=== PATIENT | female | born 1970 | race African-American/Black ===

== ENCOUNTER 2021-08-31 14:36 | Emergency (ER) | payer MEDICAID, OTHER ==
[~2021-08-31] VITALS: Ht 165.1 cm; Wt 75.0 kg
[~2021-08-31 14:36] MED LIST: METO50TA95
[2021-08-31] MEDS ORDERED: KETOROLAC 30MG/ML VIAL IM ONE (15:15)
[2021-08-31 15:33] VITALS: BP 144/99
[2021-08-31] MEDS ORDERED: KETOROLAC 30MG/ML VIAL IV STA (15:33)
[2021-08-31] MEDS ORDERED: DEXAMETHASONE 10 MG/ML VIAL IV ONE (15:45)
[2021-08-31] MEDS ORDERED: SODIUM CHLORIDE 0.9% 1,000 ML IV ONE (15:45)
[2021-08-31] MEDS ORDERED: CEFTRIAXONE 2 G PREMIX 50 ML IV ONE (15:45)
[2021-08-31 15:59] LABS: HEMATOCRIT. 32.4 % (36.0-48.0); HEMOGLOBIN. 10.7 g/dL (12.0-16.0); MEAN CORPUSCULAR HEMOGLOBIN 30.9 pg (28.0-32.0); MEAN CORPUSCULAR VOLUME 93.7 fL (81.0-99.0); MEAN PLATELET VOLUME 9.1 fl (7.4-10.4); PLATELET 167 x1000/uL (130-400); RED BLOOD CELL COUNT 3.46 mill/uL (4.2-5.4); RED CELL DISTRIBUTION WIDTH 17.7 % (11.6-14.6)
[2021-08-31 16:02] LABS: CHLORIDE 108 mEq/L (98-107)
[2021-08-31 16:04] LABS: HCG SCREEN NEGATIVE
[2021-08-31 16:48] LABS: PLATELET ESTIMATE NORMAL
[2021-08-31] MEDS ORDERED: LIDOCAINE HCL 1% 20ML VIAL (Pyxis) INJ INFIL ONE (17:15)
[2021-08-31] MEDS ORDERED: DEXAMETHASONE 4MG TABLET PO ONE (17:15)
[2021-08-31] MEDS ORDERED: CEFTRIAXONE SODIUM 1 G/VIAL IM ONE (17:15)
[2021-08-31] MEDS ORDERED: KETOROLAC 60MG/2ML VIAL IM ONE (17:15)
[2021-08-31] MEDS ORDERED: CLIN300C12 MT ×3 (17:55→22:23)
== END 2021-08-31 18:28 | disposition home or self-care (01) ==
LOC: ER 14:36
DX: J36 Peritonsillar abscess (principal); Z21 Asymptomatic human immunodeficiency virus [HIV] infection status
CPT/HCPCS: 36415; 70490; 80048; 84703; 85025; 87070; 87430; 96374; 99284; J0696; J1885; J7030; J8540

== ENCOUNTER 2021-12-13 14:03 | Emergency (ER) | payer MEDICAID, OTHER ==
[~2021-12-13] VITALS: Ht 165.1 cm; Wt 68.0 kg
[~2021-12-13 14:03] MED LIST changes: +CLIN-194 MT
[2021-12-13] MEDS ORDERED: FUROSEMIDE 40MG/4ML VIAL IV ONE (15:45)
[2021-12-13] MEDS ORDERED: ASPIRIN 81MG TABLET PO ONE (15:45)
[2021-12-13] MEDS ORDERED: NITROGLYCERIN OINT 1GM/INCH UDPKT TD ONE (15:45)
[2021-12-13] MEDS ORDERED: IPRATROPIUM BROMIDE (0.02%) 0.5MG/2.5ML NEB HHN STA (15:47)
[2021-12-13] MEDS ORDERED: ALBUTEROL (0.083%) 2.5MG/3ML NEB HHN STA (15:47)
[2021-12-13] MEDS ORDERED: METHYLPREDNISOLONE SOD SUCC 125 MG/2 ML VIAL IV STA (15:47)
[2021-12-13 17:30] LABS: BASOPHILS % 0.2 % (0.0-2.0); EOSINOPHILS % 8.7 % (0.0-5.0); HEMATOCRIT. 31.4 % (36.0-48.0); HEMOGLOBIN. 10.4 g/dL (12.0-16.0); LYMPHOCYTES % 51.8 % (20.0-50.0); MEAN CORPUSCULAR HEMOGLOBIN 31.1 pg (28.0-32.0); MEAN CORPUSCULAR VOLUME 93.8 fL (81.0-99.0); MEAN PLATELET VOLUME 8.5 fl (7.4-10.4); NEUTROPHILS % 28.3 % (40.0-76.0); PLATELET 267 x1000/uL (130-400); RED BLOOD CELL COUNT 3.35 mill/uL (4.2-5.4); RED CELL DISTRIBUTION WIDTH 15.8 % (11.6-14.6)
[2021-12-13 17:39] LABS: CHLORIDE 109 mEq/L (98-107); HCG SCREEN NEGATIVE
[2021-12-13 17:47] LABS: PARTIAL THROMBOPLASTIN TIME 26.2 sec (23.4-31.0)
[2021-12-13 19:02] VITALS: BP 156/90
== END 2021-12-13 19:59 | disposition left against medical advice (07) ==
LOC: ER 14:03 → EDBEDREQ 19:03 → ER 19:59 → CANBEDREQ 12-14 22:33
DX: R06.00 Dyspnea, unspecified (principal); R06.09 Other forms of dyspnea; J45.901 Unspecified asthma with (acute) exacerbation; R60.0 Localized edema
CPT/HCPCS: 36415; 71045; 80053; 81025; 83880; 84484; 84703; 85025; 85379; 85610; 85730; 93005; 93970; 94644; 96374; 96375; 99285; J1940; J2930; Z7610; 94640